=== PATIENT | male | born 1960 | race Caucasian/White ===

== ENCOUNTER 2017-04-18 23:47 | Emergency (ER) | payer BC ==
[2017-04-18 23:57] VITALS: BP 165/77; PULSE 65; TEMP 97.9; BMI 28.8
[2017-04-19] MEDS ORDERED: morphine CARPU-JECT 4 MG/1 ML DISP.SYRIN IVPUSH ONE (00:14)
[2017-04-19] MEDS ORDERED: morphine CARPU-JECT 10 MG/1 ML DISP.SYRIN IVPUSH ONE (00:14)
[2017-04-19] MEDS ORDERED: ONDANSETRON 4 MG/2 ML VIAL IVPB ONE (00:14)
[2017-04-19] MEDS ORDERED: SODIUM CHLORIDE 1,000 ML IV ONE ×2 (00:14→00:34)
[2017-04-19] MEDS ORDERED: morphine CARPU-JECT 10 MG/1 ML DISP.SYRIN ONE (00:15)
--- NOTE | 2017-04-19 00:18 | PDOC ---
History of Present Illness - General Chief Complaint: Pain, Acute Stated Complaint: STOMACH PAIN Time Seen by Provider: 04/18/17 23:53 History Source: Patient Exam Limitations: No Limitations - History of Present Illness Travel History: No Initial Comments: 04/19/17 00:18 57y M hx of ETOH abuse prsents with complaint of abdominal pain. Pt states the pain started pretty suddently around 7pm, associated with nbnb vomiting, is worse int he upper abd/right side. pt last ate dinner around 3-4 hrs prior to onset of the pain. Pt denies any cp, sob, fever/chills, diarrhea, melena, numbness/tingling/ewakness. no prior history of similar pain before. the pain does not radiate. he has not taken any medications for the pain. Pt denies any urinary complaint psx: appendectomy +frequent ETOH use, +binges on and off, drank alot this past week, last use was yesterday Past History - Past Medical History Allergies/Adverse Reactions: Allergies Allergy/AdvReac Type Severity Reaction Status Date / Time pollen extracts Allergy Verified 04/19/17 00:33 seasonal allergies Allergy Mild Uncoded 04/18/17 23:55 Home Medications: Ambulatory Orders No Home Medications 0 dose .ROUTE UTDICT 01/17/12 - Suicide/Smoking/Psychosocial Hx Smoking Status: No Smoking History: Never smoked Have you smoked in the past 12 months: No Number of Cigarettes Smoked Daily: 0 Information on smoking cessation initiated: No Hx Alcohol Use: No Drug/Substance Use Hx: No Substance Use Type: None Review of Systems - Review of Systems Able to Perform ROS?: Yes Comments:: 04/19/17 00:23 Constitutional - no reported Fever, Chills, HEENT: no reported vision changes, sore throat Respiratory: no reported cough, sob, hemoptysis Cardiac: no reported chest pain, palpitations, light headedness, leg swelling Abd/GI: + abd pain, nausea, vomiting, no reported blood per rectum, melena, diarrhea : no reported dysuria, frequency, discharge Musculskelatal - no reported back pain, joint swelling skin - no reported bruising, erythema, rash neurological: no reported headache, numbness, focal weakness, tingling, ataxia, hematologic: no reported anemia, easy bruising, easy bleeding *Physical Exam - Vital Signs Last Vital Signs Temp Pulse Resp BP Pulse Ox 97.9 F 65 22 165/77 100 04/18/17 23:55 04/18/17 23:55 04/18/17 23:55 04/18/17 23:55 04/18/17 23:55 - Physical Exam Comments: 04/19/17 00:24 GENERAL: The patient is awake, alert, and fully oriented, maoning in pain HEAD: Normocephalic, atraumatic. EYES: extraocular movements intact, sclera anicteric, conjunctiva clear. ENT: Normal voice, Moist mucous membranes. NECK: Normal range of motion, supple LUNGS: Breath sounds equal, clear to auscultation bilaterally. No wheezes, no rhonchi, no rales. HEART: Regular rate and rhythm, normal S1 and S2 without murmur, rub or gallop. ABDOMEN: +RUQ, epigastric tenderness on exam Soft, normoactive bowel sounds. No guarding, no rebound. . No CVA tenderness EXTREMITIES: Normal range of motion, no edema. No clubbing or cyanosis. No cords, erythema, or tenderness. NEUROLOGICAL: No facial assymetry, Normal speech, PSYCH: Normal mood, normal affect. SKIN: Warm, Dry, normal turgor, Heart Score/ECG Review - ECG Impressions Comment:: 04/19/17 00:54 Twelve-lead EKG was performed and reviewed by me. There is normal sinus rhythm with a normal rate. Rate of 83 The axis is normal. Artifacts present No ST changes suggestive of acute ischemia ED Treatment Course - LABORATORY CBC & Chemistry Diagram: 04/19/17 00:16 04/19/17 00:16 Medical Decision Making - Medical Decision Making 04/19/17 00:26 57y M presents with sudden onset of epgiastric/abdominal pain associated with vomiting that is nbnb on exam pt is moaning in pain with RUQ tenderness suspect pancreatitis vs gall stones will ck us will ck labs will give morhine, fluids, zofran will reassess 04/19/17 01:14 pt in persistent pain pt written for dilaudid 1mg awaiting US 04/19/17 02:55 labs reviewed - essentially unremarkble beside mild hypokalemia lipase and lfts wnl pt feeling improved currently asymptomatic abdominal exam soft nontender US shows some sludging without signs of acute cholecystitis pt has a GI doc in [place] that he will follow up I discussed the physical exam findings, ancillary test results and final diagnoses with the patient. I answered all of the patient's questions. The patient was satisfied with the care received and felt comfortable with the discharge plan and treatment plan. The patient will call their primary care physician within 24 hours to arrange follow-up and will return to the Emergency Department with any new, persistent or worsening symptoms. *DC/Admit/Observation/Transfer Diagnosis at time of Disposition: Abdominal pain Qualifiers: Abdominal location: right lower quadrant Qualified Code(s): R10.31 - Right lower quadrant pain - Discharge Dispostion Disposition: HOME Condition at time of disposition: Improved Admit: No - Referrals Referrals: Kurt Post [Non Staff, Medical] - - Patient Instructions Printed Discharge Instructions: DI for Abdominal Pain-Adult Additional Instructions: Return to the emergency department immediately with ANY new, persistent or worsening symptoms including worsening abdominal pain, fevers, inability to tolerate oral intake, chest pain, shortness of breath or any other concerns. Try to avoid any fatty foods. Stay well hydrated. A copy of your lab work and ultrasound results were included. You MUST call and follow up with your doctor tomorrow. Make appointment with your GI doctor in [place]. Your emergency department visit is not complete without a followup with your doctor for reevaluation. Please make sure your doctor reviews the results of your emergency evaluation. Print Language: BELARUSIAN - Post Discharge Activity
[2017-04-19] MEDS ORDERED: KETOROLAC TROMETHAMINE 30 MG/1 ML VIAL IVPUSH ONE (00:25)
[2017-04-19 00:27] LABS: BASO % 0.5 % (0-2.0); EOS % 0.5 % (0-4.5); HEMATOCRIT 43.6 % (35.4-49); HEMOGLOBIN 14.8 GM/dL (11.7-16.9); LYMPH % 28.5 % (8-40); MCH 29.5 pg (25.7-33.7); MEAN CELL VOLUME 86.8 fl (80-96); MEAN PLT VOLUME 8.5 fl (7.5-11.1); MONO % 5.5 % (3.8-10.2); PLATELET COUNT 170 K/MM3 (134-434); RBC 5.02 M/mm3 (4.00-5.60); RDW 15.3 % (11.9-15.9); WHITE BLOOD COUNT 6.3 K/mm3 (4.0-10.0)
[2017-04-19] MEDS ORDERED: KETOROLAC TROMETHAMINE 15 MG/ML VIAL ONE (00:29)
[2017-04-19] MEDS ORDERED: HYDROmorphone HCL CARPU-JECT 2 MG/1 ML DISP.SYRIN IVPUSH ONE (00:52)
[2017-04-19] MEDS ORDERED: HYDROmorphone HCL CARPU-JECT 2 MG/1 ML DISP.SYRIN ONE (00:53)
[2017-04-19 01:15] LABS: ALBUMIN 3.7 g/dl (3.4-5.0); ANION GAP 15 (8-16); BILIRUBIN,DIRECT < 0.2 mg/dL (0.0-0.2); BILIRUBIN,TOTAL 0.4 mg/dL (0.2-1.0); BLOOD UREA NITROGEN 10 mg/dL (7-18); CALCIUM 8.7 mg/dL (8.5-10.1); CHLORIDE 105 mmol/L (98-107); CO2 24 mmol/L (21-32); CREATININE 0.9 mg/dL (0.7-1.3); GLUCOSE,RANDOM 118 mg/dL (74-106); POTASSIUM 3.2 mmol/L (3.5-5.1); SGOT/AST 12 U/L (15-37); SGPT/ALT 14 U/L (12-78); SODIUM 144 mmol/L (136-145)
[2017-04-19 01:16] LABS: ALK PHOS 67 U/L (45-117); TOT PROT 7.1 g/dl (6.4-8.2)
[2017-04-19 03:14] LABS: URINE APPEARANCE CLEAR; URINE BILIRUBIN NEGATIVE (NEGATIVE); URINE BLOOD NEGATIVE (NEGATIVE); URINE COLOR LTYELLOW; URINE GLUCOSE (UA) NEGATIVE (NEGATIVE); URINE KETONE TRACE (NEGATIVE); URINE LEUK ESTERASE NEGATIVE (NEGATIVE); URINE NITRITE NEGATIVE (NEGATIVE); URINE PROTEIN NEGATIVE (NEGATIVE); URINE UROBILINOGEN NEGATIVE mg/dL (0.2-1.0)
--- NOTE | 2017-04-19 14:14 | EKG ---
Test Reason : Blood Pressure : / mmHG Vent. Rate : 065 BPM Atrial Rate : 065 BPM P-R Int : 172 ms QRS Dur : 066 ms QT Int : 432 ms P-R-T Axes : 053 048 023 degrees QTc Int : 449 ms SINUS RHYTHM WITH MARKED SINUS ARRHYTHMIA NONSPECIFIC ST ABNORMALITY ABNORMAL ECG WHEN COMPARED WITH ECG OF 17-JAN-2012 21:48, NO SIGNIFICANT CHANGE WAS FOUND BASELINE ARTIFACT AND BASELINE WANDER Confirmed by ANGEL CHUA, ANABELL ([id number]) on 04/19/2017 2:13:46 PM Referred By: Confirmed By:ANABELL ORTIZ MD
== END 2017-04-19 03:06 | disposition home or self-care (01) ==
LOC: JER 23:47
PROC: 3E0337Z Introduction of Electrolytic and Water Balance Substance into Peripheral Vein, Percutaneous Approach (ICD-10-PCS; principal; 2017-04-18)
PROC: 3E033GC Introduction of Other Therapeutic Substance into Peripheral Vein, Percutaneous Approach (ICD-10-PCS; 2017-04-18)
PROC: 3E033NZ Introduction of Analgesics, Hypnotics, Sedatives into Peripheral Vein, Percutaneous Approach (ICD-10-PCS; 2017-04-18)
PROC: 3E033NZ Introduction of Analgesics, Hypnotics, Sedatives into Peripheral Vein, Percutaneous Approach (ICD-10-PCS; 2017-04-18)
PROC: 3E0333Z Introduction of Anti-inflammatory into Peripheral Vein, Percutaneous Approach (ICD-10-PCS; 2017-04-18)
DX: R10.11 Right upper quadrant pain (principal)
CPT/HCPCS: 36415; 76705-TC; 80053; 80307; 81003; 82248; 83690; 85025; 93005; 93010; 99282-25

== ENCOUNTER 2017-04-20 08:13 | Inpatient (IN) | payer BC ==
[2017-04-20 08:21] VITALS: BMI 28.3
--- NOTE | 2017-04-20 09:10 | PDOC ---
History of Present Illness - General History Source: Patient Exam Limitations: No Limitations - History of Present Illness Initial Comments: 04/20/17 09:50 The patient is a 57 year old male with a significant PMH of perforated appendicitis s/p laparoscopic appendectomy in November 2016 and GERD who presents to the emergency department with persistent RUQ pain and episodes of emesis for over 2 days. The patient was at our facility on 04/19/17 for RUQ pain and US showed a possible early cholecystitis that will require further imaging. The patient states the RUQ pain has slightly improved after pain meds but is now radiating to the suprapubic area. The patient reports the RUQ pain is a 7/10 with associated discomfort and 2-3 episodes of bilious, non-bloody emesis approximately 4 hours after fatty meals. The patient states he is unable to tolerate PO intake. The patient notes he had water this morning and vomited immediately after. The patient states his last alcoholic beverage was yesterday at lunch time. The patient also reports associated constipation and his last bowel movement 2-3 days ago. The patient took MiraLAX today with no improvement of symptoms. The patient denies chest pain, shortness of breath, headache and dizziness. Denies fever, chills, and diarrhea. Denies dysuria, frequency, urgency and hematuria. Allergies: pollen extracts Past surgical history: Appendectomy in November 2016 and hernia repair. Social history: Alcohol use. No reported cigarette or drug use. PCP: Dr. Post <Kerline Milan - Last Filed: 04/20/17 10:18> <Maikel Lopez - Last Filed: 04/20/17 15:41> - General Chief Complaint: Pain Stated Complaint: REVISIT, ABD PAIN Time Seen by Provider: 04/20/17 08:32 Past History <Kerline Milan - Last Filed: 04/20/17 10:18> - Past Medical History COPD: No GI Disorders: Yes (GERD,IBS) - Surgical History Abdominal Surgery: Yes (ING.HERNIA) Appendectomy: Yes - Suicide/Smoking/Psychosocial Hx Smoking Status: No Smoking History: Never smoked Have you smoked in the past 12 months: No Number of Cigarettes Smoked Daily: 0 Information on smoking cessation initiated: No Hx Alcohol Use: Yes Drug/Substance Use Hx: No Substance Use Type: None <Maikel Lopez - Last Filed: 04/20/17 15:41> - Past Medical History Allergies/Adverse Reactions: Allergies Allergy/AdvReac Type Severity Reaction Status Date / Time pollen extracts Allergy Verified 04/20/17 08:16 seasonal allergies Allergy Mild Uncoded 04/20/17 08:16 Home Medications: Ambulatory Orders Oxycodone HCl/Acetaminophen [Percocet 5-325 mg Tablet] 1 tab PO Q6H PRN Review of Systems - Review of Systems Able to Perform ROS?: Yes <Kerline Milan - Last Filed: 04/20/17 10:18> - Review of Systems Constitutional: No: Chills, Fever, Night Sweats Respiratory: No: Cough, Shortness of Breath Cardiac (ROS): No: Chest Pain ABD/GI: Yes: Constipated, Nausea, Vomiting. No: Diarrhea : No: Burning, Dysuria, Hematuria Musculoskeletal: No: Muscle Pain Neurological: No: Headache All Other Systems: Reviewed and Negative <Maikel Lopez - Last Filed: 04/20/17 15:41> *Physical Exam - Vital Signs Last Vital Signs Temp Pulse Resp BP Pulse Ox 98.7 F 77 18 139/91 100 04/20/17 08:19 04/20/17 08:19 04/20/17 08:19 04/20/17 08:19 04/20/17 08:19 - Physical Exam Comments: 04/20/17 10:04 GENERAL: The patient is awake, alert, and fully oriented, in no acute distress. HEAD: Normal with no signs of trauma. EYES: Pupils equal, round and reactive to light, extraocular movements intact, sclera anicteric, conjunctiva clear with no pallor. ENT: Ears normal, nares patent, oropharynx clear without exudates. Moist mucous membranes. NECK: Normal range of motion, supple without lymphadenopathy, JVD, or masses. LUNGS: Breath sounds equal, clear to auscultation bilaterally. No wheeze/ crackles. HEART: Regular rate and rhythm, normal S1 and S2 without murmur or rub. ABDOMEN: (+) Guarding isolated to the RUQ, less in the right mid abdomen. (+) Slightly distended. (+) Bowel sounds slightly decreased. Soft. No rebound. No palpable masses. No hepatosplenomegaly. EXTREMITIES: Normal range of motion, no edema. No clubbing or cyanosis. No cords, erythema, or tenderness. NEUROLOGICAL: Cranial nerves II through XII grossly intact. Normal speech, normal gait. PSYCH: Normal mood, normal affect. SKIN: Warm, Dry, normal turgor, no rashes or lesions noted. <Kerline Milan - Last Filed: 04/20/17 10:18> - Vital Signs Last Vital Signs Temp Pulse Resp BP Pulse Ox 98.7 F 77 18 139/91 100 04/20/17 08:19 04/20/17 08:19 04/20/17 08:19 04/20/17 08:19 04/20/17 08:19 <Maikel Lopez - Last Filed: 04/20/17 15:41> ED Treatment Course - LABORATORY CBC & Chemistry Diagram: 04/20/17 10:25 04/20/17 10:25 <Maikel Lopez - Last Filed: 04/20/17 15:41> Medical Decision Making - Medical Decision Making 04/20/17 10:11 A portion of this note was documented by scribe services under my direction. I have reviewed the details of the note, within reason, and agree with the documentation with the following case summary and management plan written by me. 57-year-old male with history of perforated appendicitis November 2016 status post laparoscopic appendectomy at outside hospital, presents here for second visit over 2 days for right upper quadrant pain. Patient seen here yesterday, had labs that were within normal limits and ultrasound was equivocal for possible early cholecystitis. The patient's symptoms improved after pain control , he was discharged home. Last night, patient noted onset again of his right upper quadrant pain about 4 hours after a heavy meal, now persistent and severe and associated with bilious vomiting that continues today. The pain has slightly improved since yesterday, has radiated slightly lower in the right abdomen, and is associated with some constipation. Last bowel movement was 2 or 3 days ago, took MiraLAX today but is only passing small amounts of gas. Afebrile, vital signs stable. Well-appearing Dry mucosa Abdomen is soft and slightly distended. Tender with guarding in the right upper quadrant, discomfort to palpation in the right mid and right lower quadrant. No rebound. Bowel sounds are slightly decreased. 57-year-old male with questionable cholecystitis seen on ultrasound yesterday, now with recurring right upper quadrant pain and bilious vomiting concerning for persistent or worsening cholecystitis. Question associated ileus, given the recent perforated appendicitis would rule out superimposed obstruction. Labs, urinalysis IV fluids, pain control, nausea control CT of the abdomen and pelvis Likely admission 04/20/17 11:21 No leukocytosis, white count 7. AST and alkaline phosphatase notably elevated since yesterday. Total bili 1.2, ALT normal. Lipase normal. Presentation still consistent with biliary process, CTAP pending. 04/20/17 15:11 CTAP with distended GB consistent with cholecystitis. Abx ordered, surgery consulted, will proceed with admission. 04/20/17 15:40 Accepted for inpatient med/surg by Dr. Rodriguez, signout given to VENECIA Gutierrez. <Maikel Lopez - Last Filed: 04/20/17 15:41> *DC/Admit/Observation/Transfer - Attestations Scribe Attestion: 04/20/17 10:06 Documentation prepared by Kerline Milan, acting as site medical director for Maikel Lopez MD. <Kerline Milan - Last Filed: 04/20/17 10:18> - Discharge Dispostion Admit: Yes <Maikel Lopez - Last Filed: 04/20/17 15:41> Diagnosis at time of Disposition: Cholecystitis Abdominal pain Qualifiers: Abdominal location: right upper quadrant Qualified Code(s): R10.11 - Right upper quadrant pain - Discharge Dispostion Condition at time of disposition: Fair - Referrals Referrals: Kurt Post [Primary Care Provider] - - Patient Instructions - Post Discharge Activity
[2017-04-20] MEDS ORDERED: SODIUM CHLORIDE 1,000 ML IV ONE ×2 (09:30→11:26)
[2017-04-20] MEDS ORDERED: ONDANSETRON 4 MG/2 ML VIAL IVPB ONE (10:10)
[2017-04-20] MEDS ORDERED: morphine CARPU-JECT 4 MG/1 ML DISP.SYRIN IVPUSH ONE (10:10)
[2017-04-20 10:33] LABS: BASO % 0.9 % (0-2.0); EOS % 0.2 % (0-4.5); HEMATOCRIT 45.4 % (35.4-49); HEMOGLOBIN 15.1 GM/dL (11.7-16.9); LYMPH % 22.8 % (8-40); MCH 29.1 pg (25.7-33.7); MCHC 33.2 g/dl (32.0-35.9); MEAN CELL VOLUME 87.8 fl (80-96); MEAN PLT VOLUME 8.5 fl (7.5-11.1); MONO % 6.1 % (3.8-10.2); PLATELET COUNT 178 K/MM3 (134-434); RBC 5.17 M/mm3 (4.00-5.60); RDW 15.7 % (11.9-15.9); WHITE BLOOD COUNT 7.3 K/mm3 (4.0-10.0)
[2017-04-20] MEDS ORDERED: morphine CARPU-JECT 10 MG/1 ML DISP.SYRIN ONE (10:34)
[2017-04-20] MEDS ORDERED: ONDANSETRON 4 MG/2 ML VIAL ONE (10:34)
[2017-04-20 10:35] LABS: URINE APPEARANCE CLEAR; URINE BILIRUBIN NEGATIVE (NEGATIVE); URINE BLOOD NEGATIVE (NEGATIVE); URINE COLOR YELLOW; URINE GLUCOSE (UA) NEGATIVE (NEGATIVE); URINE KETONE NEGATIVE (NEGATIVE); URINE LEUK ESTERASE NEGATIVE (NEGATIVE); URINE NITRITE NEGATIVE (NEGATIVE); URINE PROTEIN NEGATIVE (NEGATIVE); URINE UROBILINOGEN NEGATIVE mg/dL (0.2-1.0)
[2017-04-20 11:03] LABS: INR 1.07 (0.82-1.09); PROTHROMBIN TIME (PATIENT) 12.1 SEC (9.98-11.88)
[2017-04-20 11:04] LABS: ALBUMIN 3.2 g/dl (3.4-5.0); ALK PHOS 185 U/L (45-117); ANION GAP 12 (8-16); BLOOD UREA NITROGEN 9 mg/dL (7-18); CALCIUM 8.8 mg/dL (8.5-10.1); CHLORIDE 102 mmol/L (98-107); CO2 28 mmol/L (21-32); CREATININE 0.8 mg/dL (0.7-1.3); GLUCOSE,RANDOM 87 mg/dL (74-106); LIPASE 82 U/L (73-393); SGPT/ALT 68 U/L (12-78); SODIUM 142 mmol/L (136-145)
[2017-04-20 11:06] LABS: ACTIVATED PTT 31.1 SECONDS (26.9-34.4)
[2017-04-20 11:07] LABS: BILIRUBIN,TOTAL 1.2 mg/dL (0.2-1.0); TOT PROT 6.7 g/dl (6.4-8.2)
[2017-04-20 11:08] LABS: POTASSIUM 4.1 mmol/L (3.5-5.1); SGOT/AST 181 U/L (15-37)
[2017-04-20] MEDS ORDERED: HYDROmorphone HCL CARPU-JECT 1 MG/1 ML DISP.SYRIN IVPUSH ONE ×2 (11:28→15:15)
[2017-04-20] MEDS ORDERED: HYDROmorphone HCL CARPU-JECT 2 MG/1 ML DISP.SYRIN ONE ×2 (13:08→16:13)
[2017-04-20] MEDS ORDERED: PIPERACILLIN/TAZOB 4.5 GM/100 ML PRE-DOCKED IVPB ONE (15:09)
[2017-04-20] MEDS ORDERED: PIPERACILLIN/TAZOB 4.5 GM 4.5 GM/100 ML BAG IVPB ONE (16:13)
--- NOTE | 2017-04-20 17:16 | HP ---
CHIEF COMPLAINT: Abdominal pain, nausea, vomiting PCP: HISTORY OF PRESENT ILLNESS: 57 year-old male with a PMH significant for perforated appendicitis s/p lap appendectomy in November 2016, and alcohol abuse s/p 30-day detox in December 2016 in [place]. Patient drinks nik most days, 12 shots per day. Lately has been trying to wean himself off alcohol, so yesterday only had 6 shots. On Kristy, patient developed acute upper right abdominal pain with nausea and vomiting. He came to the ED where he was treated and released. He re-presented earlier today with the same symptoms. Patient denies fever, sweats, chills. He complains of constipation. ER course was notable for: (1) Lactic acid 5.0-->0.9 (2) Total bili 0.4-->1.2 (3) AST 12-->181 (4) CTAP: distended gallbladder with wall thickening and pericholecystic fat stranding, consistent with acute cholecystitis; no biliary duct dilitation Recent Travel: [place] PAST MEDICAL HISTORY: Alcohol abuse PAST SURGICAL HISTORY: Appendectomy 11/2016 Social History: Smoking: qit 11 years ago Alcohol: nik 12 shots per day Drugs: denies Family History: Allergies pollen extracts Allergy (Verified 04/20/17 08:16) ADDED FOR "SEASONAL ALLERGIES" seasonal allergies Allergy (Mild, Uncoded 04/20/17 08:16) HOME MEDICATIONS: Home Medications Medication Instructions Recorded Oxycodone HCl/Acetaminophen 1 tab PO Q6H PRN 04/20/17 [Percocet 5-325 mg Tablet] REVIEW OF SYSTEMS CONSTITUTIONAL: Absent: fever, chills, diaphoresis, generalized weakness, malaise, loss of appetite, weight change HEENT: Absent: rhinorrhea, nasal congestion, throat pain, throat swelling, difficulty swallowing, mouth swelling, ear pain, eye pain, visual changes CARDIOVASCULAR: Absent: chest pain, syncope, palpitations, irregular heart rate, lightheadedness , peripheral edema RESPIRATORY: Absent: cough, shortness of breath, dyspnea with exertion, orthopnea, wheezing, stridor, hemoptysis GASTROINTESTINAL: +abdominal pain, distension, nausea, vomiting, constipation Absent: diarrhea, melena, hematochezia GENITOURINARY: Absent: dysuria, frequency, urgency, hesitancy, hematuria, flank pain, genital pain MUSCULOSKELETAL: Absent: myalgia, arthralgia, joint swelling, back pain, neck pain SKIN: Absent: rash, itching, pallor HEMATOLOGIC/IMMUNOLOGIC: Absent: easy bleeding, easy bruising, lymphadenopathy, frequent infections ENDOCRINE: Absent: unexplained weight gain, unexplained weight loss, heat intolerance, cold intolerance NEUROLOGIC: Absent: headache, focal weakness or paresthesias, dizziness, unsteady gait, seizure, mental status changes, bladder or bowel incontinence PSYCHIATRIC: Absent: anxiety, depression, suicidal or homicidal ideation, hallucinations. PHYSICAL EXAMINATION Vital Signs - 24 hr 04/20/17 08:19 Temperature 98.7 F Pulse Rate 77 Respiratory 18 Rate Blood Pressure 139/91 O2 Sat by Pulse 100 Oximetry (%) GENERAL: Awake, alert, and fully oriented, in no acute distress. HEAD: Normal with no signs of trauma. EYES: Pupils equal, round and reactive to light, extraocular movements intact, sclera anicteric, conjunctiva clear. No lid lag. EARS, NOSE, THROAT: Ears normal, nares patent, oropharynx clear without exudates. Moist mucous membranes. NECK: Normal range of motion, supple without lymphadenopathy, JVD, or masses. LUNGS: Breath sounds equal, clear to auscultation bilaterally. No wheezes, and no crackles. No accessory muscle use. HEART: Regular rate and rhythm, normal S1 and S2 without murmur, rub or gallop. ABDOMEN: Soft, nontender, not distended, normoactive bowel sounds, no guarding, no rebound, no masses. MUSCULOSKELETAL: Normal range of motion at all joints. No bony deformities or tenderness. No CVA tenderness. UPPER EXTREMITIES: 2+ pulses, warm, well-perfused. No cyanosis. No clubbing. No peripheral edema. LOWER EXTREMITIES: 2+ pulses, warm, well-perfused. No calf tenderness. No peripheral edema. NEUROLOGICAL: Cranial nerves II-XII intact. Normal speech. PSYCHIATRIC: Cooperative. Good eye contact. Appropriate mood and affect. SKIN: Warm, dry, normal turgor Laboratory Results - last 24 hr 04/20/17 04/20/17 04/20/17 09:20 10:25 10:25 WBC 7.3 RBC 5.17 Hgb 15.1 Hct 45.4 MCV 87.8 MCH 29.1 MCHC 33.2 RDW 15.7 Plt Count 178 MPV 8.5 Neutrophils % 70.0 Lymphocytes % 22.8 Monocytes % 6.1 Eosinophils % 0.2 Basophils % 0.9 PT with INR INR PTT (Actin FS) Sodium 142 Potassium 4.1 D Chloride 102 Carbon Dioxide 28 Anion Gap 12 BUN 9 Creatinine 0.8 Creat Clearance w eGFR > 60 Random Glucose 87 D Lactic Acid Calcium 8.8 Total Bilirubin 1.2 H D AST 181 H D ALT 68 D Alkaline Phosphatase 185 H D Creatine Kinase 59 Troponin I < 0.02 Total Protein 6.7 Albumin 3.2 L Lipase 82 Urine Color Yellow Urine Appearance Clear Urine pH 7.0 Ur Specific [place] 1.017 Urine Protein Negative Urine Glucose (UA) Negative Urine Ketones Negative Urine Blood Negative Urine Nitrite Negative Urine Bilirubin Negative Urine Urobilinogen Negative Ur Leukocyte Esterase Negative Blood Type Antibody Screen 04/20/17 04/20/17 04/20/17 10:25 10:25 10:25 WBC RBC Hgb Hct MCV MCH MCHC RDW Plt Count MPV Neutrophils % Lymphocytes % Monocytes % Eosinophils % Basophils % PT with INR INR PTT (Actin FS) Sodium Potassium Chloride Carbon Dioxide Anion Gap BUN Creatinine Creat Clearance w eGFR Random Glucose Lactic Acid 5.0 H* Calcium Total Bilirubin AST ALT Alkaline Phosphatase Creatine Kinase Cancelled Troponin I Cancelled Total Protein Albumin Lipase Urine Color Urine Appearance Urine pH Ur Specific [place] Urine Protein Urine Glucose (UA) Urine Ketones Urine Blood Urine Nitrite Urine Bilirubin Urine Urobilinogen Ur Leukocyte Esterase Blood Type O POSITIVE Antibody Screen Negative 04/20/17 10:25 WBC RBC Hgb Hct MCV MCH MCHC RDW Plt Count MPV Neutrophils % Lymphocytes % Monocytes % Eosinophils % Basophils % PT with INR 12.10 H INR 1.07 PTT (Actin FS) 31.1 Sodium Potassium Chloride Carbon Dioxide Anion Gap BUN Creatinine Creat Clearance w eGFR Random Glucose Lactic Acid Calcium Total Bilirubin AST ALT Alkaline Phosphatase Creatine Kinase Troponin I Total Protein Albumin Lipase Urine Color Urine Appearance Urine pH Ur Specific [place] Urine Protein Urine Glucose (UA) Urine Ketones Urine Blood Urine Nitrite Urine Bilirubin Urine Urobilinogen Ur Leukocyte Esterase Blood Type Antibody Screen ASSESSMENT/PLAN 57 year-old male significant for perforated appendicitis s/p lap appendectomy in November 2016, and alcohol abuse. Admitted for acute cholecystitis. Acute cholecystitis --spike in total bili and AST over 24 hour period --MRCP ordered --surgery consult pending --start ceftriaxone Alcohol abuse --start librium taper --ativan PRN for seizure activity FEN Fluids: NS @ 125mL/hr Electrolytes: replete as indicated Nutrition: NPO DVT prophylaxis: subq heparin Dispo: continues to require inpatient care. Full code. Visit type - Emergency Visit Emergency Visit: Yes ED Registration Date: 04/20/17 Care time: The patient presented to the Emergency Department on the above date and was hospitalized for further evaluation of their emergent condition. - New Patient This patient is new to me today: Yes Date on this admission: 04/20/17 - Critical Care Critical Care patient: No
[2017-04-20] MEDS: DEXTROSE 5%-0.45% SALINE 1,000 ML IV SCH (18:21)
[2017-04-20] MEDS ORDERED: chlordiazePOXIDE HCL 25 MG CAPSULE PO PRN (23:42)
[2017-04-20] MEDS ORDERED: LORazepam 2 MG/ML SDV VIAL IVPUSH ONE (23:45)
[2017-04-21] MEDS: chlordiazePOXIDE HCL 25 MG CAPSULE PO SCH ×5 (00:41→22:14)
[2017-04-21 07:58] LABS: HEMATOCRIT 39.8 % (35.4-49); HEMOGLOBIN 13.3 GM/dL (11.7-16.9); MCH 29.4 pg (25.7-33.7); MCHC 33.3 g/dl (32.0-35.9); MEAN CELL VOLUME 88.1 fl (80-96); MEAN PLT VOLUME 8.7 fl (7.5-11.1); PLATELET COUNT 141 K/MM3 (134-434); RBC 4.52 M/mm3 (4.00-5.60); RDW 14.9 % (11.9-15.9); WHITE BLOOD COUNT 4.2 K/mm3 (4.0-10.0)
[2017-04-21 08:33] LABS: ALBUMIN 2.7 g/dl (3.4-5.0); ALK PHOS 236 U/L (45-117); ANION GAP 6 (8-16); BILIRUBIN,TOTAL 1.4 mg/dL (0.2-1.0); BLOOD UREA NITROGEN 6 mg/dL (7-18); CALCIUM 7.8 mg/dL (8.5-10.1); CHLORIDE 103 mmol/L (98-107); CO2 31 mmol/L (21-32); CREATININE 0.8 mg/dL (0.7-1.3); GLUCOSE,RANDOM 90 mg/dL (74-106); LIPASE 69 U/L (73-393); PHOSPHOROUS 3.8 mg/dL (2.5-4.9); POTASSIUM 3.6 mmol/L (3.5-5.1); SGOT/AST 206 U/L (15-37); SGPT/ALT 151 U/L (12-78); SODIUM 140 mmol/L (136-145); TOT PROT 5.9 g/dl (6.4-8.2)
--- NOTE | 2017-04-21 09:18 | EKG ---
Test Reason : Blood Pressure : / mmHG Vent. Rate : 060 BPM Atrial Rate : 060 BPM P-R Int : 172 ms QRS Dur : 076 ms QT Int : 406 ms P-R-T Axes : 050 026 029 degrees QTc Int : 406 ms NORMAL SINUS RHYTHM NORMAL ECG WHEN COMPARED WITH ECG OF 19-APR-2017 00:51, NO SIGNIFICANT CHANGE WAS FOUND Confirmed by MD Ronquillo Edward ([id number]) on 04/21/2017 9:18:04 AM Referred By: Confirmed By:Kali Ronquillo MD
[2017-04-21] MEDS: DEXTROSE 5%-0.45% SALINE 1,000 ML IV SCH ×2 (09:50→17:15)
[2017-04-21] MEDS: CEFTRIAXONE 1 G/50 ML PREMIX 50 ML IVPB SCH (09:50)
--- NOTE | 2017-04-21 11:26 | CONSULT ---
- Consultation REQUESTING PROVIDER: Dr. Devi CONSULT REQUEST: We have been asked to surgically evaluate this patient for elevated bilirubin/Gall bladder disease. PCP:Lillie Gutierrez HISTORY OF PRESENT ILLNESS: The patient is 57 yo male who presented for recurrent epigastric pain. He had nausea and emesis but his symptoms have improved. He was seen and treated for RUQ pain the day prior. Yesterday he had alcohol earlier in the day and danish food for dinner. The patient denies any fever or chills. PMHx: GERD, sleep apnea uses a mouth guard, left ankle fracture PSHx: appendectomy, left jaw surgery from trauma Home Medications Medication Instructions Recorded Oxycodone HCl/Acetaminophen 1 tab PO Q6H PRN 04/20/17 [Percocet 5-325 mg Tablet] Allergies Allergy/AdvReac Type Severity Reaction Status Date / Time pollen extracts Allergy Verified 04/20/17 08:16 seasonal allergies Allergy Mild Uncoded 04/20/17 08:16 REVIEW OF SYSTEMS: CONSTITUTIONAL: Absent: fever, chills, Present: weight change(intentional with decreased food intake and then jaw wiring from trauma/fracture) CARDIOVASCULAR: Absent: chest pain, palpitations. RESPIRATORY: Absent: cough, shortness of breath GASTROINTESTINAL: Present: abdominal pain, nausea, vomiting GENITOURINARY: Absent: dysuria, frequency MUSCULOSKELETAL: Absent: myalgia, arthralgia SKIN: Absent: rash, itching, pallor HEMATOLOGIC/IMMUNOLOGIC: Absent: easy bleeding, easy bruising NEUROLOGIC: Absent: headache, paresthesias PHYSICAL EXAM: GENERAL: Awake, alert, and fully oriented, in no acute distress. HEAD: Normal with no signs of trauma. EYES: sclera anicteric, conjunctiva clear. NECK: Normal ROM, supple without lymphadenopathy LUNGS: Clear to auscultation bilat anteriorly. No wheezes, and no crackles. HEART: Regular rate and rhythm. No murmurs ABDOMEN: Soft, nontender, not distended, no guarding, mild RUQ tenderness. RIH with reducible inguinal hernia. No LIH masses. MUSCULOSKELETAL: Normal ROM at all joints. No bony deformities or tenderness. UPPER EXTREMITIES: 2+ pulses, warm, well-perfused. No cyanosis. Cap refill <2 seconds. No peripheral edema. LOWER EXTREMITIES: 2+ pulses, warm, well-perfused. No calf tenderness. No peripheral edema. NEUROLOGICAL: Normal speech, gait not observed. PSYCH: Cooperative. Good eye contact. Appropriate mood and affect. SKIN: Warm, dry. Vital Signs Temperature 97.6 F 04/21/17 07:12 Pulse Rate 63 04/21/17 07:12 Respiratory Rate 20 04/21/17 07:12 Blood Pressure 135/85 04/21/17 07:12 O2 Sat by Pulse Oximetry (%) 98 04/20/17 23:30 Lab Results WBC 4.2 K/mm3 (4.0-10.0) D 04/21/17 06:00 RBC 4.52 M/mm3 (4.00-5.60) 04/21/17 06:00 Hgb 13.3 GM/dL (11.7-16.9) D 04/21/17 06:00 Hct 39.8 % (35.4-49) 04/21/17 06:00 MCV 88.1 fl (80-96) 04/21/17 06:00 MCHC 33.3 g/dl (32.0-35.9) 04/21/17 06:00 RDW 14.9 % (11.9-15.9) 04/21/17 06:00 Plt Count 141 K/MM3 (134-434) D 04/21/17 06:00 Sodium 140 mmol/L (136-145) 04/21/17 06:00 Potassium 3.6 mmol/L (3.5-5.1) 04/21/17 06:00 Chloride 103 mmol/L (98-107) 04/21/17 06:00 Carbon Dioxide 31 mmol/L (21-32) 04/21/17 06:00 Anion Gap 6 (8-16) L 04/21/17 06:00 BUN 6 mg/dL (7-18) L D 04/21/17 06:00 Creatinine 0.8 mg/dL (0.7-1.3) 04/21/17 06:00 Random Glucose 90 mg/dL (74-106) 04/21/17 06:00 Calcium 7.8 mg/dL (8.5-10.1) L 04/21/17 06:00 Blood Type O POSITIVE 04/20/17 10:25 Antibody Screen Negative 04/20/17 10:25 INR 1.07 (0.82-1.09) 04/20/17 10:25 Laboratory Tests 04/19/17 04/20/17 04/21/17 00:16 10:25 06:00 Total Bilirubin 0.4 D 1.2 H D 1.4 H Direct Bilirubin < 0.2 AST 12 L D 181 H D 206 H ALT 14 D 68 D 151 H D Alkaline Phosphatase 67 D 185 H D 236 H D US: 04/20: distended/thickened GB without stones 04/19: 04/19: sludge seen within GB no stones CT scan: 04/20: distended GB with pericholecystic fluid Problem List - Problems (1) Cholecystitis Assessment/Plan: Pt with with Dr. Devi today, evidence of distended GB with sludge and elevated LFTs MRI/MRCP ordered to r/o CBD pathology Recommend to continue npo/iv hydration IV abx rocephin Trend LFTs Pt on librium/detox protocol Code(s): K81.9 - CHOLECYSTITIS, UNSPECIFIED Visit type - Case Type Case Type: ED Admission - Emergency Emergency Visit: Yes ED Registration Date: 04/20/17 Care time: The patient presented to the Emergency Department on the above date and was hospitalized for further evaluation of their emergent condition. - New patient This patient is new to me today: Yes Date on this admission: 04/21/17
[2017-04-21] MEDS: HYDROmorphone HCL CARPU-JECT 1 MG/1 ML DISP.SYRIN IVPUSH PRN ×2 (12:02→19:11)
[2017-04-21] MEDS ORDERED: SENNOSIDES/DOCUSATE COMBO (SENNA PLUS) TABLET (UD) PO PRN (12:12)
[2017-04-21] MEDS: METRONIDAZOLE 500 MG PREMIXED 500 MG/100 ML MG IVPB SCH ×2 (13:05→17:14)
--- NOTE | 2017-04-21 13:06 | PN ---
Physical Exam: SUBJECTIVE: Patient seen and examined at bedside. States he does not feel well, with some lower abdominal pain. No nausea, no vomiting. Denies anxiety, jitteriness, sweats, chills. Feels his alcoholism is being overemphasized. Explained the need to medically stabilize him prior to surgery. OBJECTIVE: Vital Signs Period Temp Pulse Resp BP Sys/Samuel Pulse Ox Last 24 Hr 97.6 F-99.4 F 61-70 16-20 126-135/78-96 96-98 GENERAL: The patient is awake, alert, and fully oriented, in no acute distress. LUNGS: Breath sounds equal, clear to auscultation bilaterally, no wheezes, no crackles, no accessory muscle use. HEART: Regular rate and rhythm, S1, S2 without murmur, rub or gallop. ABDOMEN: Soft, nontender, nondistended, normoactive bowel sounds, no guarding, no rebound EXTREMITIES: 2+ pulses, warm, well-perfused, no edema. NEUROLOGICAL: Cranial nerves II through XII grossly intact. Normal speech, gait not observed. No tremors, no asterixis. SKIN: Warm and dry. Laboratory Results - last 24 hr 04/20/17 04/20/17 04/21/17 09:20 17:30 06:00 WBC 4.2 D RBC 4.52 Hgb 13.3 D Hct 39.8 MCV 88.1 MCH 29.4 MCHC 33.3 RDW 14.9 Plt Count 141 D MPV 8.7 Sodium Potassium Chloride Carbon Dioxide Anion Gap BUN Creatinine Creat Clearance w eGFR Random Glucose Lactic Acid 0.9 Calcium Phosphorus Magnesium Total Bilirubin AST ALT Alkaline Phosphatase Total Protein Albumin Lipase Ur Leukocyte Esterase Negative 04/21/17 06:00 WBC RBC Hgb Hct MCV MCH MCHC RDW Plt Count MPV Sodium 140 Potassium 3.6 Chloride 103 Carbon Dioxide 31 Anion Gap 6 L BUN 6 L D Creatinine 0.8 Creat Clearance w eGFR > 60 Random Glucose 90 Lactic Acid Calcium 7.8 L Phosphorus 3.8 Magnesium 2.0 Total Bilirubin 1.4 H AST 206 H ALT 151 H D Alkaline Phosphatase 236 H D Total Protein 5.9 L Albumin 2.7 L Lipase 69 L Ur Leukocyte Esterase Active Medications Generic Name Dose Route Start Last Admin Trade Name Freq PRN Reason Stop Dose Admin Chlordiazepoxide HCl 50 mg 04/20/17 23:00 04/21/17 12:00 Librium - PO 04/21/17 17:01 50 mg [id number] GERA Administration Chlordiazepoxide HCl 25 mg 04/21/17 23:00 Librium - PO 04/22/17 17:01 [id number] GERA Chlordiazepoxide HCl 15 mg 04/22/17 23:00 Librium - PO 04/23/17 17:01 [id number] GERA Chlordiazepoxide HCl 25 mg 04/20/17 23:42 Librium - PO 04/23/17 23:41 Q4H PRN WITHDRAWAL(CONT SUBST) Docusate Sodium 100 mg 04/21/17 14:00 Colace - PO TID GERA Hydromorphone HCl 1 mg 04/21/17 00:36 04/21/17 12:02 Dilaudid Injection - IVPUSH 1 mg Q6H PRN Administration PAIN Dextrose/Sodium Chloride 1,000 mls @ 100 mls/hr 04/20/17 17:00 04/21/17 09:50 D5-1/2ns - IV 100 mls/hr ASDIR GERA Administration CEFTRIAXONE 1 G/50 ML PREMIX 50 mls @ 100 mls/hr 04/21/17 10:00 04/21/17 09: 50 Ceftriaxone 1 Gm-D5w Bag IVPB 100 mls/hr DAILY GERA Administration Metronidazole 500 mg in 100 mls @ 100 mls/hr 04/21/17 12:00 Flagyl 500mg Premixed Ivpb - IVPB Q8H-IV GERA Senna/Docusate Sodium 2 tablet 04/21/17 12:12 Pericolace - PO HS PRN CONSTIPATION ASSESSMENT/PLAN 57 year-old male significant for perforated appendicitis s/p lap appendectomy in November 2016, and alcohol abuse. Admitted for acute cholecystitis. Acute cholecystitis --spike in total bili and AST over first 24-hour period, now trended to wnl --MRCP ordered --surgery following --continue ceftriaxone, start metronidazole Alcohol abuse --start librium taper --ativan PRN for seizure activity FEN Fluids: PO intake adequate Electrolytes: replete as indicated Nutrition: clears DVT prophylaxis: subq heparin Dispo: continues to require inpatient care. Full code. Visit type - Emergency Visit Emergency Visit: Yes ED Registration Date: 04/20/17 Care time: The patient presented to the Emergency Department on the above date and was hospitalized for further evaluation of their emergent condition. - New Patient This patient is new to me today: No - Critical Care Critical Care patient: No
[2017-04-21] MEDS: POLYETHYLENE GLYCOL 3350 119 GM BTL PO SCH ×2 (14:43→22:14)
[2017-04-21] MEDS: DOCUSATE SODIUM 100 MG CAPSULE (FP) PO SCH ×2 (14:43→22:14)
[2017-04-21] MEDS: HEPARIN NA (PORCINE) 5,000 UNITS/ML 1ML VIAL SQ SCH ×2 (14:43→22:14)
[2017-04-21] MEDS ORDERED: PT OWN MED DRAWER 7, Y5N ONE (17:03)
[2017-04-22] MEDS: METRONIDAZOLE 500 MG PREMIXED 500 MG/100 ML MG IVPB SCH ×3 (01:35→17:17)
[2017-04-22] MEDS: DOCUSATE SODIUM 100 MG CAPSULE (FP) PO SCH ×3 (05:00→22:56)
[2017-04-22] MEDS: chlordiazePOXIDE HCL 25 MG CAPSULE PO SCH ×3 (05:00→17:17)
[2017-04-22] MEDS: HEPARIN NA (PORCINE) 5,000 UNITS/ML 1ML VIAL SQ SCH ×3 (05:00→22:55)
[2017-04-22] MEDS: DEXTROSE 5%-0.45% SALINE 1,000 ML IV SCH ×2 (05:00→17:23)
[2017-04-22] MEDS: HYDROmorphone HCL CARPU-JECT 1 MG/1 ML DISP.SYRIN IVPUSH PRN ×2 (05:27→13:08)
[2017-04-22 08:42] LABS: BASO % 0.6 % (0-2.0); EOS % 2.9 % (0-4.5); HEMATOCRIT 39.1 % (35.4-49); MCH 29.2 pg (25.7-33.7); MCHC 33.2 g/dl (32.0-35.9); MEAN CELL VOLUME 87.9 fl (80-96); MEAN PLT VOLUME 8.6 fl (7.5-11.1); MONO % 4.4 % (3.8-10.2); NEUT % 60.1 % (42.8-82.8); PLATELET COUNT 147 K/MM3 (134-434); RBC 4.45 M/mm3 (4.00-5.60); RDW 15.3 % (11.9-15.9); WHITE BLOOD COUNT 4.6 K/mm3 (4.0-10.0)
[2017-04-22 09:11] LABS: ALBUMIN 2.7 g/dl (3.4-5.0); ANION GAP 6 (8-16); BLOOD UREA NITROGEN 5 mg/dL (7-18); CHLORIDE 104 mmol/L (98-107); CO2 31 mmol/L (21-32); GLUCOSE,RANDOM 95 mg/dL (74-106); POTASSIUM 3.7 mmol/L (3.5-5.1); SGOT/AST 51 U/L (15-37); SGPT/ALT 90 U/L (12-78); SODIUM 141 mmol/L (136-145)
[2017-04-22 09:13] LABS: ALK PHOS 181 U/L (45-117); BILIRUBIN,TOTAL 0.6 mg/dL (0.2-1.0); CREATININE 0.8 mg/dL (0.7-1.3); TOT PROT 5.7 g/dl (6.4-8.2)
--- NOTE | 2017-04-22 10:16 | PN ---
Progress Note (short form) - Note Progress Note: Attending Surgeon Seen in f/u; RUQ w/clear liquids; o/w no c/o VSS AF abdomen-soft; RUQ tenderness; o/w negative LFT's down and MRCP negative for choledocholithiasis WBC-wnl IMP: cholecystitis PLAN: Continue presen tx.; lap koffi possible open tomorrow; r/b/t/a/'s d/w the patient. Jaren Devi MD FACS
[2017-04-22] MEDS: POLYETHYLENE GLYCOL 3350 119 GM BTL PO SCH ×2 (10:47→22:56)
[2017-04-22] MEDS: CEFTRIAXONE 1 G/50 ML PREMIX 50 ML IVPB SCH (10:47)
--- NOTE | 2017-04-22 12:02 | PN ---
Physical Exam: SUBJECTIVE: Patient seen and examined at the bedside. OBJECTIVE: Vital Signs Period Temp Pulse Resp BP Sys/Samuel Pulse Ox Last 24 Hr 97.3 F-98.2 F 54-64 18-20 118-132/77-88 97 GENERAL: The patient is awake, alert, and fully oriented, in no acute distress. HEAD: Normal with no signs of trauma. EYES: PERRL, extraocular movements intact, sclera anicteric, conjunctiva clear. No ptosis. ENT: Ears normal, nares patent, oropharynx clear without exudates, moist mucous membranes. NECK: Trachea midline, full range of motion, supple. LUNGS: Breath sounds equal, clear to auscultation bilaterally HEART: Regular rate and rhythm, S1, S2 without murmur, rub or gallop. ABDOMEN: Soft, nontender, nondistended, RUQ pain on light palpation EXTREMITIES: 2+ pulses, warm, well-perfused, no edema. NEUROLOGICAL: Normal speech, gait not observed. PSYCH: Normal mood, normal affect. SKIN: Warm, dry, normal turgor, no rashes or lesions noted Laboratory Results - last 24 hr 04/22/17 04/22/17 07:55 07:55 WBC 4.6 RBC 4.45 Hgb 13.0 Hct 39.1 MCV 87.9 MCH 29.2 MCHC 33.2 RDW 15.3 Plt Count 147 MPV 8.6 Neutrophils % 60.1 Lymphocytes % 32.0 D Monocytes % 4.4 Eosinophils % 2.9 D Basophils % 0.6 Sodium 141 Potassium 3.7 Chloride 104 Carbon Dioxide 31 Anion Gap 6 L BUN 5 L Creatinine 0.8 Creat Clearance w eGFR > 60 Random Glucose 95 Calcium 8.0 L Total Bilirubin 0.6 D AST 51 H D ALT 90 H D Alkaline Phosphatase 181 H D Total Protein 5.7 L Albumin 2.7 L Active Medications Generic Name Dose Route Start Last Admin Trade Name Freq PRN Reason Stop Dose Admin Chlordiazepoxide HCl 25 mg 04/21/17 23:00 04/22/17 05:00 Librium - PO 04/22/17 17:01 25 mg [id number] GERA Administration Chlordiazepoxide HCl 15 mg 04/22/17 23:00 Librium - PO 04/23/17 17:01 [id number] GERA Chlordiazepoxide HCl 25 mg 04/20/17 23:42 Librium - PO 04/23/17 23:41 Q4H PRN WITHDRAWAL(CONT SUBST) Docusate Sodium 100 mg 04/21/17 14:00 04/22/17 05:00 Colace - PO 100 mg TID GERA Administration Heparin Sodium (Porcine) 5,000 unit 04/21/17 14:00 04/22/17 05:00 Heparin - SQ 5,000 unit TID GERA Administration Hydromorphone HCl 1 mg 04/21/17 00:36 04/22/17 05:27 Dilaudid Injection - IVPUSH 1 mg Q6H PRN Administration PAIN Dextrose/Sodium Chloride 1,000 mls @ 100 mls/hr 04/20/17 17:00 04/22/17 05:00 D5-1/2ns - IV 100 mls/hr ASDIR GERA Administration CEFTRIAXONE 1 G/50 ML PREMIX 50 mls @ 100 mls/hr 04/21/17 10:00 04/22/17 10: 47 Ceftriaxone 1 Gm-D5w Bag IVPB 100 mls/hr DAILY GERA Administration Metronidazole 500 mg in 100 mls @ 100 mls/hr 04/21/17 12:00 04/22/17 10:48 Flagyl 500mg Premixed Ivpb - IVPB 100 mls/hr Q8H-IV GERA Administration Polyethylene Glycol 17 gm 04/21/17 13:30 04/22/17 10:47 Miralax (For Daily Use) - PO 17 gm BID GERA Administration ASSESSMENT/PLAN: Patient is a 57 year old male with a significant past medical history of perforated appendicitis s/p lap appendectomy on Nov 2016 and ETOH abuse. He presents to the ED on 04/20/2016 for acute cholecystitis. GI: Acute cholecystitis + RUQ pain, tolerating clears but fearful of illiciting pain vitals stable, no fevers Abdomen soft, non distended LFTs trending down MRCP reviewed Lap koffi tomorrow with Dr. Devi On Flagyl q8, Ceftraxone 1 gram NPO at midnight Psyche: Alcohol abuse, chronic On a librium taper No signs of acute w/drawl on exam, calm and cooperative FEN Fluids: d5 1/2 ns @ 100cc/hr Electrolytes: monitor Nutrition: clears, advance as per surgery DVT: DVT: SCDS GI: Protonix 40mg iv daily Disposition: Full code.
[2017-04-22] MEDS: HYDROmorphone HCL CARPU-JECT 2 MG/1 ML DISP.SYRIN IVPUSH PRN ×2 (17:17→22:50)
[2017-04-22] MEDS: chlordiazePOXIDE 5 MG CAPSULE PO SCH (22:56)
[2017-04-23] MEDS: DEXTROSE 5%-0.45% SALINE 1,000 ML IV SCH (01:50)
[2017-04-23] MEDS: METRONIDAZOLE 500 MG PREMIXED 500 MG/100 ML MG IVPB SCH ×4 (01:51→17:21)
[2017-04-23] MEDS: HYDROmorphone HCL CARPU-JECT 2 MG/1 ML DISP.SYRIN IVPUSH PRN (05:23)
[2017-04-23] MEDS: DOCUSATE SODIUM 100 MG CAPSULE (FP) PO SCH ×3 (06:13→22:01)
[2017-04-23] MEDS: HEPARIN NA (PORCINE) 5,000 UNITS/ML 1ML VIAL SQ SCH ×3 (06:13→22:01)
[2017-04-23] MEDS: chlordiazePOXIDE 5 MG CAPSULE PO SCH ×2 (06:30→14:15)
[2017-04-23 08:34] LABS: BASO % 0.6 % (0-2.0); EOS % 2.3 % (0-4.5); HEMATOCRIT 38.9 % (35.4-49); LYMPH % 30.8 % (8-40); MCH 29.4 pg (25.7-33.7); MCHC 33.3 g/dl (32.0-35.9); MEAN CELL VOLUME 88.3 fl (80-96); MEAN PLT VOLUME 8.5 fl (7.5-11.1); MONO % 5.7 % (3.8-10.2); NEUT % 60.6 % (42.8-82.8); PLATELET COUNT 157 K/MM3 (134-434); RDW 15.1 % (11.9-15.9); WHITE BLOOD COUNT 4.1 K/mm3 (4.0-10.0)
[2017-04-23] MEDS: CEFTRIAXONE 1 G/50 ML PREMIX 50 ML IVPB SCH ×2 (08:37→14:14)
[2017-04-23 09:03] LABS: CHLORIDE 105 mmol/L (98-107); POTASSIUM 3.9 mmol/L (3.5-5.1); SODIUM 143 mmol/L (136-145)
[2017-04-23 09:35] LABS: ALBUMIN 2.9 g/dl (3.4-5.0); ALK PHOS 163 U/L (45-117); ANION GAP 9 (8-16); BILIRUBIN,TOTAL 0.5 mg/dL (0.2-1.0); BLOOD UREA NITROGEN 4 mg/dL (7-18); CALCIUM 8.3 mg/dL (8.5-10.1); CO2 29 mmol/L (21-32); CREATININE 0.9 mg/dL (0.7-1.3); GLUCOSE,RANDOM 93 mg/dL (74-106); MAGNESIUM 2.2 mg/dL (1.8-2.4); SGOT/AST 25 U/L (15-37); SGPT/ALT 64 U/L (12-78)
[2017-04-23] MEDS ORDERED: PROMETHAZINE HCL 25 MG/1 ML VIAL IVPUSH PRN ×2 (09:52→12:38)
[2017-04-23] MEDS ORDERED: ONDANSETRON 4 MG/2 ML VIAL IVPUSH PRN ×2 (09:52→12:38)
[2017-04-23] MEDS ORDERED: LIDOCAINE HCL/PF 2% SDV 5ML VIAL ONE (09:56)
[2017-04-23] MEDS ORDERED: MIDAZOLAM HCL 2 MG/2 ML SINGLE DOSE VIAL ONE (09:57)
[2017-04-23] MEDS ORDERED: PROPOFOL 20 ML ONE ×3 (09:57→11:13)
[2017-04-23] MEDS ORDERED: ROCURONIUM BROMIDE 50 MG/5 ML VIAL ONE (09:57)
[2017-04-23] MEDS ORDERED: LACTATED RINGERS SOLUTION 1,000 ML IV SCH (10:00)
[2017-04-23] MEDS ORDERED: PANTOPRAZOLE SODIUM 40 MG VIAL IVPUSH SCH (10:00)
[2017-04-23] MEDS ORDERED: BUPIVACAINE HCL/PF 0.5% (5MG/ML) 10 ML VIAL ONE (10:08)
[2017-04-23] MEDS ORDERED: METRONIDAZOLE 500 MG PREMIXED 500 MG/100 ML MG IVPB ONE (10:08)
[2017-04-23] MEDS ORDERED: GLYCOPYRROLATE 0.2 MG/1 ML VIAL ONE (10:54)
[2017-04-23] MEDS ORDERED: NEOSTIGMINE METHYLSULFATE 0.5 MG/ML - 10 ML MDV ONE (10:54)
[2017-04-23] MEDS ORDERED: SUCCINYLCHOLINE CHLORIDE 200 MG/10 ML VIAL ONE (11:03)
[2017-04-23] MEDS ORDERED: BUPIVACAINE HCL/PF 0.5% (5MG/ML) 10 ML VIAL IJ ONE ×2 (11:20)
[2017-04-23] MEDS ORDERED: KETOROLAC TROMETHAMINE 30 MG/1 ML VIAL ONE (11:25)
--- NOTE | 2017-04-23 11:55 | OP ---
Operative Note - Note: Operative Date: 04/23/17 Pre-Operative Diagnosis: Gallstone pancreatitis Operation: Lap cholecystectomy Post-Operative Diagnosis: Same as Pre-op Surgeon: Jaren Devi Adjunct Phlebotomy Instructor: Polo Easley Anesthesiologist/[employer] SUPERVISOR: Bertha Osullivan Anesthesia: General Specimens Removed: gallbladder Estimated Blood Loss (mls): 25 Fluid Volume Replaced (mls): 700 Operative Report Dictated: Yes
--- NOTE | 2017-04-23 11:56 | SURG ---
Surgery Rail Car Unloader Note Rail Car Unloader: Polo Easley PA-C Date of Service: 04/23/17 Diagnosis: gallstone pancreatitis Procedure: Laproscopic cholecystectomy I was present for the entirety of the operative procedure. For further detail, please refer to operative report. Visit type - Case Type Case Type: ED Admission
[2017-04-23] MEDS ORDERED: chlordiazePOXIDE HCL 25 MG CAPSULE PO PRN (12:38)
[2017-04-23] MEDS ORDERED: HYDROmorphone HCL CARPU-JECT 2 MG/1 ML DISP.SYRIN IVPB PRN (12:38)
[2017-04-23] MEDS: LACTATED RINGERS SOLUTION 1,000 ML IV SCH ×2 (13:00→22:02)
[2017-04-23] MEDS: POLYETHYLENE GLYCOL 3350 119 GM BTL PO SCH ×2 (14:15→22:01)
--- NOTE | 2017-04-23 15:22 | PN ---
Physical Exam: SUBJECTIVE: Patient seen and examined at the bedside. s/p lap koffi Awake and alert, having some post op. OBJECTIVE: s/p lap koffi with Dr. Devi Vital Signs Period Temp Pulse Resp BP Sys/Samuel Pulse Ox Last 24 Hr 97.6 F-98.7 F 53-73 13-22 114-134/73-97 96-100 GENERAL: The patient is awake, alert, and fully oriented, in no acute distress. HEAD: Normal with no signs of trauma. EYES: PERRL, extraocular movements intact, sclera anicteric, conjunctiva clear. No ptosis. ENT: Ears normal, nares patent, oropharynx clear without exudates, moist mucous membranes. NECK: Trachea midline, full range of motion, supple. LUNGS: Breath sounds equal, clear to auscultation bilaterally HEART: Regular rate and rhythm ABDOMEN: surgical dressing c/d/i EXTREMITIES: no edema. NEUROLOGICAL: Normal speech, gait not observed. Laboratory Results - last 24 hr 04/23/17 04/23/17 06:00 06:00 WBC 4.1 RBC 4.40 Hgb 13.0 Hct 38.9 MCV 88.3 MCH 29.4 MCHC 33.3 RDW 15.1 Plt Count 157 MPV 8.5 Neutrophils % 60.6 Lymphocytes % 30.8 Monocytes % 5.7 Eosinophils % 2.3 Basophils % 0.6 Sodium 143 Potassium 3.9 Chloride 105 Carbon Dioxide 29 Anion Gap 9 BUN 4 L Creatinine 0.9 Creat Clearance w eGFR > 60 Random Glucose 93 Calcium 8.3 L Magnesium 2.2 Total Bilirubin 0.5 AST 25 D ALT 64 D Alkaline Phosphatase 163 H Total Protein 6.0 L Albumin 2.9 L Active Medications Generic Name Dose Route Start Last Admin Trade Name Freq PRN Reason Stop Dose Admin Chlordiazepoxide HCl 25 mg 04/23/17 12:38 Librium - PO 04/23/17 23:41 Q4H PRN WITHDRAWAL(CONT SUBST) Chlordiazepoxide HCl 15 mg 04/23/17 17:00 Librium - PO 04/23/17 17:01 [id number] GERA Docusate Sodium 100 mg 04/23/17 14:00 Colace - PO TID GERA Fentanyl 50 mcg 04/23/17 12:38 Sublimaze Injection - IVPUSH [id number] PRN PAIN Heparin Sodium (Porcine) 5,000 unit 04/23/17 14:00 Heparin - SQ TID GERA Hydromorphone HCl 1 mg 04/23/17 12:38 04/23/17 13:50 Dilaudid Injection - IVPB 1 mg Q4H PRN Administration PAIN Metronidazole 500 mg in 100 mls @ 100 mls/hr 04/23/17 18:00 Flagyl 500mg Premixed Ivpb - IVPB Q8H-IV GERA Lactated Ringer's 1,000 mls @ 125 mls/hr 04/23/17 12:38 04/23/17 13:00 Lactated Ringers Solution IV 300 mls ASDIR GERA Administration Ondansetron HCl 4 mg 04/23/17 12:38 Zofran Injection IVPUSH Q6H PRN NAUSEA AND/OR VOMITING Pantoprazole Sodium 40 mg 04/24/17 10:00 Protonix Iv IVPUSH DAILY GERA Polyethylene Glycol 17 gm 04/23/17 22:00 Miralax (For Daily Use) - PO BID GERA Promethazine HCl 12.5 mg 04/23/17 12:38 Phenergan Injection - IVPUSH Q6H PRN NAUSEA-FOR RESCUE AFTER 15 MIN ASSESSMENT/PLAN: Patient is a 57 year old male with a significant past medical history of perforated appendicitis s/p lap appendectomy on Nov 2016 and ETOH abuse. He presents to the ED on 04/20/2016 with persistent RUQ pain and episodes of emesis for over 2 days. Imaging: Abdominal MRI: distended gallbladder containing large amount of layering sludge with MRI findings of acute cholecystitits, no gallstones seen. Brittany hepatitis edema, edema around pancreas head also seen GI: Acute cholecystitis s/p lap koffi for gallstone pancreatitis Tolerating diet, advance as per surgery Vitals stable, no fevers Abdomen soft, non distended, dressings c/d/i LFTs trending down On Flagyl q8 Psyche: Alcohol abuse, chronic Completed Libirium taper, on PRN Librium No signs of acute w/drawl on exam, calm and cooperative FEN Fluids: LR @ 125cc/hr Electrolytes: monitor Nutrition: clears, advance as per surgery DVT: DVT: SCDS GI: Protonix 40mg iv daily Disposition: discharge likely tomorrow once tolerating diet. full code. Visit type - Emergency Visit Emergency Visit: Yes ED Registration Date: 04/20/17 Care time: The patient presented to the Emergency Department on the above date and was hospitalized for further evaluation of their emergent condition. - New Patient This patient is new to me today: No - Critical Care Critical Care patient: No - Discharge Referral Referred to [facility] No
[2017-04-23] MEDS ORDERED: HYDROmorphone HCL CARPU-JECT 1 MG/1 ML DISP.SYRIN IVPB ONE (16:51)
[2017-04-23] MEDS ORDERED: chlordiazePOXIDE 5 MG CAPSULE PO SCH (17:00)
[2017-04-23] MEDS: HYDROmorphone HCL CARPU-JECT 1 MG/1 ML DISP.SYRIN IVPB PRN (22:07)
[2017-04-24] MEDS: METRONIDAZOLE 500 MG PREMIXED 500 MG/100 ML MG IVPB SCH ×2 (01:52→09:38)
[2017-04-24] MEDS: HYDROmorphone HCL CARPU-JECT 1 MG/1 ML DISP.SYRIN IVPB PRN ×2 (03:27→07:44)
[2017-04-24] MEDS: HEPARIN NA (PORCINE) 5,000 UNITS/ML 1ML VIAL SQ SCH ×2 (06:11→13:37)
[2017-04-24] MEDS: DOCUSATE SODIUM 100 MG CAPSULE (FP) PO SCH ×2 (06:11→13:37)
[2017-04-24 08:10] LABS: BASO % 0.3 % (0-2.0); HEMATOCRIT 35.9 % (35.4-49); HEMOGLOBIN 12.2 GM/dL (11.7-16.9); LYMPH % 17.4 % (8-40); MCH 29.6 pg (25.7-33.7); MCHC 34.1 g/dl (32.0-35.9); MEAN CELL VOLUME 86.8 fl (80-96); MEAN PLT VOLUME 8.7 fl (7.5-11.1); MONO % 5.9 % (3.8-10.2); NEUT % 76.4 % (42.8-82.8); PLATELET COUNT 165 K/MM3 (134-434); RBC 4.14 M/mm3 (4.00-5.60); WHITE BLOOD COUNT 6.2 K/mm3 (4.0-10.0)
[2017-04-24 08:59] LABS: CALCIUM 7.6 mg/dL (8.5-10.1); CHLORIDE 107 mmol/L (98-107); POTASSIUM 3.7 mmol/L (3.5-5.1); SODIUM 142 mmol/L (136-145)
[2017-04-24 09:05] LABS: ALBUMIN 2.6 g/dl (3.4-5.0); ALK PHOS 136 U/L (45-117); ANION GAP 9 (8-16); BILIRUBIN,TOTAL 0.5 mg/dL (0.2-1.0); BLOOD UREA NITROGEN 5 mg/dL (7-18); CO2 26 mmol/L (21-32); CREATININE 0.7 mg/dL (0.7-1.3); GLUCOSE,RANDOM 90 mg/dL (74-106); SGOT/AST 18 U/L (15-37); SGPT/ALT 47 U/L (12-78); TOT PROT 5.5 g/dl (6.4-8.2)
--- NOTE | 2017-04-24 09:25 | DS ---
Physical Exam: SUBJECTIVE: Patient seen and examined OBJECTIVE: Vital Signs Period Temp Pulse Resp BP Sys/Samuel Pulse Ox Last 24 Hr 97.3 F-98.7 F 53-73 13-22 111-134/74-97 96-100 PHYSICAL EXAM GENERAL: The patient is awake, alert, and fully oriented, in no acute distress. HEAD: Normal with no signs of trauma. EYES: PERRL, extraocular movements intact, sclera anicteric, conjunctiva clear. ENT: Ears normal, nares patent, oropharynx clear without exudates, moist mucous membranes. NECK: Trachea midline, full range of motion, supple. LUNGS: Breath sounds equal, clear to auscultation bilaterally, no wheezes, no crackles, no accessory muscle use. HEART: Regular rate and rhythm, S1, S2 without murmur, rub or gallop. ABDOMEN: Soft, nontender, nondistended, normoactive bowel sounds, no guarding, no rebound, no hepatosplenomegaly, no masses. EXTREMITIES: 2+ pulses, warm, well-perfused, no edema. NEUROLOGICAL: Cranial nerves II through XII grossly intact. Normal speech, gait not observed. PSYCH: Normal mood, normal affect. SKIN: Warm, dry, normal turgor, no rashes or lesions noted. LABS Laboratory Results - last 24 hr 04/23/17 04/24/17 04/24/17 06:00 07:47 07:47 WBC 6.2 D RBC 4.14 Hgb 12.2 Hct 35.9 MCV 86.8 MCH 29.6 MCHC 34.1 RDW 15.0 Plt Count 165 MPV 8.7 Neutrophils % 76.4 D Lymphocytes % 17.4 D Monocytes % 5.9 Eosinophils % 0.0 D Basophils % 0.3 Sodium 143 142 Potassium 3.9 3.7 Chloride 105 107 Carbon Dioxide 29 26 Anion Gap 9 9 BUN 4 L 5 L D Creatinine 0.9 0.7 D Creat Clearance w eGFR > 60 > 60 Random Glucose 93 90 Calcium 8.3 L 7.6 L Magnesium 2.2 Total Bilirubin 0.5 0.5 AST 25 D 18 D ALT 64 D 47 D Alkaline Phosphatase 163 H 136 H Total Protein 6.0 L 5.5 L Albumin 2.9 L 2.6 L HOSPITAL COURSE: Date of Admission:04/20/17 Date of Discharge: 04/24/17 Discharge Summary Reason For Visit: CHOLECYSTISIS Current Active Problems Abdominal pain (Acute) Cholecystitis (Acute) Condition: Fair - Instructions Diet, Activity, Other Instructions: Dr. Devi Discharge Instructions Dear SUSAN ANTHONY, Post Operative Instructions Physical activity Resume your normal everyday activity as tolerated no heavy lifting or exercise until seen by your surgeon. You may walk unlimited amounts of and climb stairs. You may resume driving the car when you feel safe and comfortable behind the wheel. Wound care If you have a bandage, leave it on, and keep dry for 48 - 72 hours. After that time discard the outer bandage. If there are tapes on the skin under the outer bandage, leave them in place. They will peel off in the next 7 to 10 days. Do Not peel them off. You may shower 2 days after surgery. If there are tapes present on the skin, they can get wet. Diet There are no dietary restrictions. Eat healthy, high-fiber foods. Drink 6 to 8 glasses of liquid each day. This will assist in keeping your bowels are regular. Pain management You may take Tylenol or acetaminophen or Ibuprofen (for example, Motrin, Advil etc.) Any pain prescription medication ordered should be taken as prescribed for moderate to severe pain. Call Dr. Devi for any of the following: Severe pain not relieved by medication Fever of 101 or higher Excessive bleeding or drainage on dressing Inability to urinate Call the office at [phone] for a post operative appointment in 7 - 10 days. Referrals: Kurt Post [Primary Care Provider] - Disposition: HOME - Home Medications Comprehensive Discharge Medication List: Ambulatory Orders Oxycodone HCl/Acetaminophen [Percocet 5-325 mg Tablet] 1 tab PO Q6H PRN - Discharge Referral Referred to [facility] No
[2017-04-24] MEDS: POLYETHYLENE GLYCOL 3350 119 GM BTL PO SCH (09:38)
[2017-04-24] MEDS ORDERED: PANTOPRAZOLE SODIUM 40 MG VIAL IVPUSH SCH (10:00)
[2017-04-24] MEDS ORDERED: oxyCODONE HCL 5 MG TABLET PO PRN (12:00)
[2017-04-24] MEDS ORDERED: HYDROmorphone HCL CARPU-JECT 1 MG/1 ML DISP.SYRIN IVPB ONE (12:00)
[2017-04-24] MEDS ORDERED: ACETAMINOPHEN 325 MG TABLET (FP) PO PRN (12:01)
--- NOTE | 2017-04-24 12:04 | PN ---
Physical Exam: SUBJECTIVE: Patient seen and examined at bedside. Leaned over to retrieve something that fell to the floor and felt pain on right side. Denies symptoms of withdrawal. OBJECTIVE: Vital Signs Period Temp Pulse Resp BP Sys/Samuel Pulse Ox Last 24 Hr 97.3 F-98.7 F 53-70 13-20 111-134/75-97 96-100 GENERAL: The patient is awake, alert, and fully oriented, in no acute distress. LUNGS: Breath sounds equal, clear to auscultation bilaterally, no wheezes, no crackles, no accessory muscle use. HEART: Regular rate and rhythm, S1, S2 without murmur, rub or gallop. ABDOMEN: Soft, nontender, nondistended, normoactive bowel sounds; surgical ports clean, edges well-approximated, no swelling, no edema; HAMLET drain ~60cc sanguinous fluid EXTREMITIES: 2+ pulses, warm, well-perfused, no edema. NEUROLOGICAL: Cranial nerves II through XII grossly intact. Normal speech, moving all extremities freely Laboratory Results - last 24 hr 04/24/17 04/24/17 07:47 07:47 WBC 6.2 D RBC 4.14 Hgb 12.2 Hct 35.9 MCV 86.8 MCH 29.6 MCHC 34.1 RDW 15.0 Plt Count 165 MPV 8.7 Neutrophils % 76.4 D Lymphocytes % 17.4 D Monocytes % 5.9 Eosinophils % 0.0 D Basophils % 0.3 Sodium 142 Potassium 3.7 Chloride 107 Carbon Dioxide 26 Anion Gap 9 BUN 5 L D Creatinine 0.7 D Creat Clearance w eGFR > 60 Random Glucose 90 Calcium 7.6 L Total Bilirubin 0.5 AST 18 D ALT 47 D Alkaline Phosphatase 136 H Total Protein 5.5 L Albumin 2.6 L Current Medications Generic Name Dose Route Start Last Admin Trade Name Freq PRN Reason Stop Dose Admin Acetaminophen 650 mg 04/24/17 12:01 Tylenol - PO Q6H PRN FEVER OR PAIN Docusate Sodium 100 mg 04/23/17 14:00 04/24/17 06:11 Colace - PO 100 mg TID [facility] Administration Heparin Sodium (Porcine) 5,000 unit 04/23/17 14:00 04/24/17 06:11 Heparin - SQ 5,000 unit TID GERA Administration Hydromorphone HCl 0.5 mg 04/24/17 12:00 Dilaudid Injection - IVPB 04/24/17 12:01 ONCE ONE Metronidazole 500 mg in 100 mls @ 100 mls/hr 04/23/17 18:00 04/24/17 09:38 Flagyl 500mg Premixed Ivpb - IVPB 100 mls/hr Q8H-IV GERA Administration Oxycodone HCl 5 mg 04/24/17 12:00 Roxicodone - PO Q6H PRN PAIN Polyethylene Glycol 17 gm 04/23/17 22:00 04/24/17 09:38 Miralax (For Daily Use) - PO 17 gm BID GERA Administration ASSESSMENT/PLAN 57 year-old male significant for perforated appendicitis s/p lap appendectomy in November 2016, and alcohol abuse. Admitted for acute cholecystitis. Gallstone pancreatitis s/p lap cholecystectomy 04/23/17 --HAMLET drain in place draining sanguinous fluid --incisions look good --switch to PO pain meds --stop IV fluids --encourage oob to chair, ambulation, participation in PT --continue metronidazole (day #4) Alcohol abuse --librium taper complete FEN Fluids: PO intake adequate Electrolytes: replete as indicated Nutrition: advance to full liquids DVT prophylaxis: subq heparin Dispo: continues to require inpatient care. Full code. Visit type - Emergency Visit Emergency Visit: Yes ED Registration Date: 04/20/17 Care time: The patient presented to the Emergency Department on the above date and was hospitalized for further evaluation of their emergent condition. - New Patient This patient is new to me today: No - Critical Care Critical Care patient: No
[2017-04-24 15:24] VITALS: BP 107/68; PULSE 59; TEMP 97.8
--- NOTE | 2017-04-24 16:46 | DS ---
Physical Exam: SUBJECTIVE: Patient seen and examined OBJECTIVE: Vital Signs Period Temp Pulse Resp BP Sys/Samuel Pulse Ox Last 24 Hr 97.3 F-98.1 F 51-68 18-20 107-130/68-84 97 PHYSICAL EXAM GENERAL: The patient is awake, alert, and fully oriented, in no acute distress. HEAD: Normal with no signs of trauma. EYES: PERRL, extraocular movements intact, sclera anicteric, conjunctiva clear. ENT: Ears normal, nares patent, oropharynx clear without exudates, moist mucous membranes. NECK: Trachea midline, full range of motion, supple. LUNGS: Breath sounds equal, clear to auscultation bilaterally, no wheezes, no crackles, no accessory muscle use. HEART: Regular rate and rhythm, S1, S2 without murmur, rub or gallop. ABDOMEN: Soft, nontender, nondistended, normoactive bowel sounds, no guarding, no rebound, no hepatosplenomegaly, no masses. EXTREMITIES: 2+ pulses, warm, well-perfused, no edema. NEUROLOGICAL: Cranial nerves II through XII grossly intact. Normal speech, gait not observed. PSYCH: Normal mood, normal affect. SKIN: Warm, dry, normal turgor, no rashes or lesions noted. LABS Laboratory Results - last 24 hr 04/24/17 04/24/17 07:47 07:47 WBC 6.2 D RBC 4.14 Hgb 12.2 Hct 35.9 MCV 86.8 MCH 29.6 MCHC 34.1 RDW 15.0 Plt Count 165 MPV 8.7 Neutrophils % 76.4 D Lymphocytes % 17.4 D Monocytes % 5.9 Eosinophils % 0.0 D Basophils % 0.3 Sodium 142 Potassium 3.7 Chloride 107 Carbon Dioxide 26 Anion Gap 9 BUN 5 L D Creatinine 0.7 D Creat Clearance w eGFR > 60 Random Glucose 90 Calcium 7.6 L Total Bilirubin 0.5 AST 18 D ALT 47 D Alkaline Phosphatase 136 H Total Protein 5.5 L Albumin 2.6 L HOSPITAL COURSE: Date of Admission:04/20/17 Date of Discharge: 04/24/17 Discharge Summary Reason For Visit: CHOLECYSTISIS Condition: Improved - Instructions Diet, Activity, Other Instructions: Dr. Devi Discharge Instructions Dear SUSAN ANTHONY, Post Operative Instructions Physical activity Resume your normal everyday activity as tolerated no heavy lifting or exercise until seen by your surgeon. You may walk unlimited amounts of and climb stairs. You may resume driving the car when you feel safe and comfortable behind the wheel. Wound care If you have a bandage, leave it on, and keep dry for 48 - 72 hours. After that time discard the outer bandage. If there are tapes on the skin under the outer bandage, leave them in place. They will peel off in the next 7 to 10 days. Do Not peel them off. You may shower 2 days after surgery. If there are tapes present on the skin, they can get wet. Diet There are no dietary restrictions. Eat healthy, high-fiber foods. Drink 6 to 8 glasses of liquid each day. This will assist in keeping your bowels are regular. Pain management You may take Tylenol or acetaminophen or Ibuprofen (for example, Motrin, Advil etc.) Any pain prescription medication ordered should be taken as prescribed for moderate to severe pain. Call Dr. Devi for any of the following: Severe pain not relieved by medication Fever of 101 or higher Excessive bleeding or drainage on dressing Inability to urinate Call the office at [phone] for a post operative appointment in 7 - 10 days. Referrals: Kurt Post [Primary Care Provider] - Disposition: HOME - Home Medications Comprehensive Discharge Medication List: Ambulatory Orders Oxycodone HCl/Acetaminophen [Percocet 5-325 mg Tablet] 1 tab PO Q6H PRN #8 tablet MDD 4 04/24/17 - Discharge Referral Referred to [facility] Med [facility].: No
--- NOTE | 2017-04-26 16:26 | PATH ---
Surgical Pathology Report Patient Name: SSUAN ANTHONY Med. Rec. #: [id number] /Age/Gender: 1960 (Age: 57) / M Account: [id number] Location: [facility] MED/SURG Taken: 04/23/2017 Received: 04/23/2017 Reported: 04/26/2017 Physicians: MD Lillie Shields, SURENDRA Specimen(s) Received GALLBLADDER Clinical History Gallstone, pancreatitis Final Diagnosis GALLBLADDER, LAPAROSCOPIC CHOLECYSTECTOMY: ACUTE AND CHRONIC CHOLECYSTITIS. Electronically Signed Landy Cordon M.D. Gross Description Received in formalin, labeled "gallbladder," is a 8.0 x 3.5 x 2.3 cm. gallbladder with a 0.2 cm. in length portion of cystic duct attached. The outer surface is [place]-pink with a focal defect and varies from smooth to shaggy. The lumen contains green, tenacious bile. There are no choleliths identified. The mucosa is [place] and focally eroded. The wall of the gallbladder ranges from 0.1-0.5 cm. in thickness. Manager Study sections are submitted in one cassette. /04/23/201704/23/2017
--- NOTE | 2017-04-26 20:01 | OP ---
DATE OF OPERATION: 04/23/2017 PREOPERATIVE DIAGNOSIS: Status post gallstone pancreatitis. POSTOPERATIVE DIAGNOSIS: Status post gallstone pancreatitis. PROCEDURE: Laparoscopic cholecystectomy. SURGEON: Jaren Devi M.D. TECHNICAL SERVICES COORDINATOR: Polo Mondragon PA-C ANESTHESIA: General. OPERATIVE FINDINGS: There was evidence of acute cholecystitis and inflammation in the right upper quadrant. The rest of the findings are unremarkable. PROCEDURE: The patient was placed on operating table in supine position, and after the induction of general anesthesia, the patient's abdomen was prepped with Chloraprep and draped in sterile fashion. A timeout was taken. Pneumoperitoneum was established above the umbilicus using a Veress needle to an intraabdominal pressure of 15 mmHg. Subsequently a 5-mm supraumbilical port was placed and laparoscopy carried out. Additional lateral 5-mm ports in the subxiphoid, 12-mm port were placed. The gallbladder was then placed on cephalad and lateral retraction, and using a combination of blunt dissection and electrocautery, adhering omentum through the gallbladder was taken down until hepatocystic triangle could be exposed. Next, the peritoneum over the neck of the gallbladder was opened medially and laterally using electrocautery and blunt dissection. The cystic artery was found to be coursing over the cystic duct and both structures were dissected separately for length proximally and distally. Each structure was then clipped twice proximally and twice distally with large hemoclips and divided using the Endoshears. This was done after a critical view of safety was taken. Next, the gallbladder was removed from the liver bed in the retrograde fashion using electrocautery until it was at the edge of the liver. Hemostasis was checked for and noted to be good, and then the gallbladder removed from edge of the liver, placed in an Endocatch and brought out through the subxiphoid port. Pneumoperitoneum was reestablished, and copious irrigation carried out until the return was clear. Hemostasis was again verified and then a 10-mm Shaka-Adams drain was placed in the right hepatorenal fossa and brought out through one of the 5-mm port sites where it was secured to the skin with 2-0 silk suture. All ports removed under laparoscopic vision without evidence of bleeding from the port sites, and the pneumoperitoneum evacuated, and each port site infiltrated with 0.5% Marcaine. The skin edges were closed with continuous 4-0 Monocryl followed by Steri-Strips and band-aid dressings. The drain was connected to bulb self suction, and the patient aroused from general anesthesia, and then transferred to the post anesthesia care unit in stable condition awake and alert , estimated blood loss 25 mL. Replacements crystalloid. Drains one 10-mm Shaka-Adams. Specimen gallbladder and contents to pathology. I, Jaren Devi MD, was physically present in the operating room from the time the patient was placed on the operating room table until he was transferred to the post anesthesia care unit under my accompaniment. MD TAE Thomas/[id number] MTDD
== END 2017-04-24 16:17 | disposition home or self-care (01) | DRG 417 ==
LOC: JER 08:13 → UNDOADMIN 15:41 → JERBED 15:41 → J8W 04-21 00:24
PROVIDERS: ADMIT Hospitalist; ATTEND Nurse Practitioner Acute Care
PROC: 0FT44ZZ Resection of Gallbladder, Percutaneous Endoscopic Approach (ICD-10-PCS; principal; 2017-04-23 09:30)
DX: K81.0 Acute cholecystitis (principal); K85.10 Biliary acute pancreatitis without necrosis or infection; K81.1 Chronic cholecystitis; F10.10 Alcohol abuse, uncomplicated
CPT/HCPCS: 36415; 71045-TC; 74177-TC; 74181-TC; 76705-TC; 80053; 81003; 82550; 83605; 83690; 83735; 84100; 84484; 85025; 85027; 85610; 85730; 86850; 86900; 86901; 87040; 88304-TC; 93005; 93010; 94010; 94760; 97116-GP; 97161-GP; 99282-25; J1644; Q9967

== ENCOUNTER 2019-02-24 14:03 | Emergency (ER) | payer BC ==
[2019-02-24 14:07] VITALS: BP 142/91; PULSE 71; TEMP 98; BMI 35.6
[2019-02-24] MEDS ORDERED: NAPROXEN 500 MG TABLET (FP) PO ONE (15:22)
--- NOTE | 2019-02-24 15:28 | PDOC ---
History of Present Illness - General Chief Complaint: Pain Stated Complaint: RT LEG PAIN Time Seen by Provider: 02/24/19 14:36 History Source: Patient Exam Limitations: Clinical Condition - History of Present Illness Initial Comments: 02/24/19 15:30 Patient with no significant past medical history presented with complaint of pain to lateral aspect of right calf muscle after stepped on a curbside yesterday while taking the garbage and twisting right leg hearing a popping sound in the right calf muscle last night. Patient report increased pain to right calf muscle with ambulation with swelling around calf muscle. Denies numbness or tingling sensation. Denies posterior knee pain or to any pain. Denies fall. Denies shortness of breath, chest pain, palpitations. Denies any other symptoms Occurred: reports: yesterday Pain Location: reports: lower extremity (righ calf muscle) Method of Injury: Yes: other (twisting righ calf) Modifying Factors: improves with: rest Past History - Past Medical History Allergies/Adverse Reactions: Allergies Allergy/AdvReac Type Severity Reaction Status Date / Time pollen extracts Allergy Verified 02/24/19 14:07 seasonal allergies Allergy Mild Uncoded 02/24/19 14:07 Home Medications: Ambulatory Orders Oxycodone HCl/Acetaminophen [Percocet 5-325 mg Tablet] 1 tab PO Q6H PRN #8 tablet MDD 4 04/24/17 Naproxen 500 mg PO BID PRN #20 tablet 02/24/19 COPD: No GI Disorders: Yes (GERD,IBS) - Surgical History Abdominal Surgery: Yes (ING.HERNIA) Appendectomy: Yes Cholecystectomy: Yes - Psycho Social/Smoking Cessation Hx Smoking Status: No Smoking History: Never smoked Have you smoked in the past 12 months: No Number of Cigarettes Smoked Daily: 0 Hx Alcohol Use: Yes Drug/Substance Use Hx: Yes Substance Use Type: Alcohol Review of Systems - Review of Systems Able to Perform ROS?: Yes Is the patient limited Hungarian proficient: No Constitutional: No: Malaise, Weakness HEENTM: No: Symptoms Reported Respiratory: No: Symptoms reported, See HPI, Cough, Orthopnea, Shortness of Breath, SOB with Exertion, SOB at Rest, Stridor, Wheezing, Productive cough, Hemoptysis, Other Cardiac (ROS): No: Symptoms Reported, See HPI, Chest Pain, Edema, Irregular Heart Rate, Lightheadedness, Palpitations, Syncope, Chest Tightness, Other Musculoskeletal: Yes: Symptoms Reported, See HPI, Muscle Pain (right lateral calf muscle pain). No: Back Pain, Gout, Joint Pain, Joint Swelling, Muscle Weakness, Neck Pain, Joint Stiffness, Other Integumentary: No: Symptoms Reported, Change in Color, Erythema Neurological: No: Symptoms reported, Numbness, Paresthesia, Tingling, Weakness All Other Systems: Reviewed and Negative *Physical Exam - Vital Signs Last Vital Signs Temp Pulse Resp BP Pulse Ox 98 F 71 18 142/91 100 02/24/19 14:04 02/24/19 14:04 02/24/19 14:04 02/24/19 14:04 02/24/19 14:04 - Physical Exam Comments: 02/24/19 15:34 GENERAL: Well developed, well nourished. Awake and alert in mild acute distress. PULMONARY: No evidence of respiratory distress. MUSCULOSKELETAL : moderate point tenderness to lateral aspect of right calf muscle with mild localized swelling to lateral gastrocnemius. Negative Betancur 's test. No Achilles tendon insertion site tenderness. No bony deformities EXTREMITIES: No cyanosis. No clubbing. No edema. Moderate point tenderness to lateral aspect of proximal right calf muscle. Negative Betancur's test. No Achilles tendon insertion site tenderness. SKIN: Warm and dry. Normal capillary refill. No Bruising, ecchymosis or skin erythema of right lower extremity. No increased warmth to right calf muscle. NEUROLOGICAL: Alert, awake, appropriate. No motor deficits in the lower extremities. Gait is normal without ataxia. PSYCHIATRIC: Cooperative. Good eye contact. Appropriate mood and affect. General Appearance: Yes: Nourished, Appropriately Dressed, Mild Distress ED Treatment Course - RADIOLOGY Radiology Studies Ordered: Category Date Time Status KNEE 3 POS-RIGHT [RAD] Stat Radiology 02/24/19 14:36 Ordered LEG TIB/FIB-RIGHT [RAD] Stat Radiology 02/24/19 14:59 Ordered Medical Decision Making - Medical Decision Making 02/24/19 15:32 Patient with no significant past medical history presented with complaint of pain to lateral aspect of right calf muscle after stepped on a curbside yesterday while taking the garbage and twisting right leg hearing a popping sound in the right calf muscle last night. Patient report increased pain to right calf muscle with ambulation with swelling around calf muscle. Denies numbness or tingling sensation. Denies posterior knee pain or to any pain. Denies fall. Denies shortness of breath, chest pain, palpitations. Denies any other symptoms Exam significant for moderate point tenderness to lateral aspect of right calf muscle with mild localized swelling to lateral gastrocnemius. Negative Betancur 's test. No Achilles tendon insertion site tenderness. X-ray of right knee and lower leg shows no evidence of tendon rupture or soft tissue swelling. Patient symptoms likely muscle strain. Patient stable for discharge with advised to do hot compress 2-3 times a day as needed for pain with naproxen as needed for pain with orthopedics follow-up in 3 days if symptoms does not improve. Plan discussed with patient patient understands follow-up instructions Discharge - Discharge Information Problems reviewed: Yes Clinical Impression/Diagnosis: Strain of calf muscle Qualifiers: Encounter type: initial encounter Laterality: right Qualified Code(s): S86.811A - Strain of other muscle(s) and tendon(s) at lower leg level, right leg , initial encounter Condition: Stable Disposition: HOME - Admission No - Additional Discharge Information Prescriptions: Naproxen 500 mg PO BID PRN #20 tablet PRN Reason: pain - Follow up/Referral Referrals: Wilmar Cowart DO [Staff Physician] - - Patient Discharge Instructions Patient Printed Discharge Instructions: DI for Calf Muscle Strain Additional Instructions: There is no evidence of rupture of the tendon on x-ray of right lower leg. symptoms likely caused by muscle strain. Take prescribed medication as needed for pain. Apply warm compress 2-3 times a day as needed for calf muscle pain and swelling. Follow-up referred to orthopedics if no improvement in 3 days for possible MRI - Post Discharge Activity
[2019-02-24] MEDS ORDERED: NAPROXEN 500 MG TABLET (FP) ONE (15:36)
== END 2019-02-24 15:47 | disposition home or self-care (01) ==
LOC: JERFT 14:03
DX: S86.111A Strain of other muscle(s) and tendon(s) of posterior muscle group at lower leg level, right leg, initial encounter (principal); X50.1XXA Overexertion from prolonged static or awkward postures, initial encounter; Y93.H9 Activity, other involving exterior property and land maintenance, building and construction; Y92.480 Sidewalk as the place of occurrence of the external cause; Y99.8 Other external cause status; Z91.048 Other nonmedicinal substance allergy status; Z90.49 Acquired absence of other specified parts of digestive tract; Z87.19 Personal history of other diseases of the digestive system
CPT/HCPCS: 73562-TC-RT-FY; 73590-TC-RT-FY; 99281-25